=== PATIENT | male | born 1980 | race African-American/Black ===

== ENCOUNTER 2020-01-15 12:03 | Inpatient (IN) | payer OTHER ==
[~2020-01-15] VITALS: Ht 180.3 cm; Wt 83.7 kg
[2020-01-15] MEDS ORDERED: NITROGLYCERIN 2% (1 GM=INCH) PACKET TP ONE (12:45)
[2020-01-15] MEDS ORDERED: NITROGLYCERIN 0.4 MG SUBLINGUAL TABLET #25 SL ONE (12:45)
[2020-01-15] MEDS ORDERED: ASPIRIN 81 MG CHEWABLE TABLET PO ONE (12:45)
[2020-01-15 12:54] LABS: BASOPHILS % (AUTO) 0.9 % (0.0-2.0); EOSINOPHILS % (AUTO) 1.6 % (1.0-6.0); HEMATOCRIT 36.6 % (41-53); HEMOGLOBIN 11.8 g/dL (13.5-17.5); LYMPHOCYTES # (AUTO) 1.6 K/uL (1.0-4.8); LYMPHOCYTES % (AUTO) 16.8 % (22.0-44.0); MEAN CORPUSCULAR HEMOGLOBIN 27.8 pg (26.0-34.0); MEAN CORPUSCULAR HGB CONC 32.3 G/dL (31.0-37.0); MEAN CORPUSCULAR VOLUME 86 fL (80-100); MONOCYTES # (AUTO) 0.5 K/uL (0.1-1.0); MONOCYTES % (AUTO) 5.6 % (2.0-9.0); NEUTROPHILS # (AUTO) 7.1 K/uL (1.8-7.7); NEUTROPHILS % (AUTO) 75.1 % (40.0-70.0); PLATELET COUNT (AUTO) 268 K/uL (150-450); RED BLOOD CELL COUNT(AUTO) 4.25 MIL/uL (4.50-5.90); RED CELL DISTRIBUTION WIDTH 16.3 % (11.5-14.5)
[2020-01-15 13:07] LABS: ANION GAP 11 mmol/L (8-16); CALCIUM, TOTAL 7.3 mg/dL (8.8-10.5); CARBON DIOXIDE 24 mmol/L (22-29); CHLORIDE 102 mmol/L (98-107); CREATININE 9.63 mg/dL (0.60-1.30); GLOMERULAR FILTR. RATE CALC 7 mL/min (>60); GLUCOSE,RANDOM 146 mg/dL (70-110); POTASSIUM 5.2 mmol/L (3.5-5.1); SODIUM SERUM 137 mmol/L (136-145); UREA NITROGEN, BLOOD 92 mg/dL (7-18)
[2020-01-15 13:15] LABS: ALANINE AMINOTRANSFERASE 54 U/L (12-78); ALBUMIN 2.3 g/dL (3.4-5.0); ALKALINE PHOSPHATASE 73 U/L (46-116); ASPARTATE AMINOTRANSFERASE 32 U/L (15-37); BILIRUBIN,TOTAL 0.5 mg/dL (0.1-1.0); TOTAL PROTEIN, SERUM 5.3 g/dL (6.4-8.2)
[2020-01-15 13:19] LABS: B-TYPE NATRIURETIC PEPTIDE > 5000 pg/mL (0-100)
[2020-01-15] MEDS ORDERED: NiCARDipine HCL 25 MG in DEXTROSE 5%-WATER 240 ML IV PRN (13:31)
[2020-01-15] MEDS ORDERED: BUMETANIDE 0.25 MG/ML 4 ML VIAL IVP ONE (13:45)
[2020-01-15 14:45] LABS: AMPHET/METH SCREEN,URINE NEGATIVE (NEGATIVE); BARBITURATE SCREEN, URINE NEGATIVE (NEGATIVE); BENZODIAZEPINES SCREEN,URINE NEGATIVE (NEGATIVE); CANNABINOID SCREEN,URINE NEGATIVE (NEGATIVE); COCAINE SCREEN,URINE NEGATIVE (NEGATIVE); METHADONE SCREEN, URINE NEGATIVE (NEGATIVE); OPIATE SCREEN,URINE NEGATIVE (NEGATIVE)
[2020-01-15 14:55] LABS: PHENCYCLIDINE SCREEN,URINE NEGATIVE (NEGATIVE)
[2020-01-15] MEDS ORDERED: HYDROCODONE/ACETAMINOPHEN 5-325 MG TABLET PO PRN (15:30)
[2020-01-15] MEDS ORDERED: ZOLPIDEM TARTRATE 5 MG TABLET PO PRN (15:30)
[2020-01-15] MEDS ORDERED: ACETAMINOPHEN 325 MG TABLET PO PRN (15:30)
[2020-01-15] MEDS ORDERED: ALPRAZolam 0.5 MG TABLET PO ONE ×2 (15:30→17:30)
[2020-01-15] MEDS ORDERED: ONDANSETRON HCL 4 MG/2 ML VIAL IVP PRN (15:30)
[2020-01-15] MEDS ORDERED: MORPHINE SULFATE 2 MG/ML SYRINGE IVP PRN (15:30)
[2020-01-15] MEDS ORDERED: BISACODYL 10 MG RECTAL RECTAL SUPPOSITORY PR PRN (15:30)
[2020-01-15] MEDS ORDERED: MAGNESIUM HYDROXIDE SUSPENSION 30 ML UDCUP PO PRN (15:30)
[2020-01-15] MEDS ORDERED: CloNIDine HCL 0.1 MG TABLET PO ONE (16:00)
[2020-01-15] MEDS: HEPARIN SODIUM,PORCINE 5,000 UNITS/ML VIAL SQ SCH (17:38)
[2020-01-15 17:40] LABS: CHOL/HDL RATIO 2.6 (4.2-7.3)
[2020-01-15 20:00] VITALS: BP 157/74
[2020-01-15] MEDS ORDERED: FUROSEMIDE 20 MG/2 ML VIAL IVP SCH (21:00)
[2020-01-15] MEDS ORDERED: BUMETANIDE 1 MG TABLET PO ONE (21:00)
[2020-01-15] MEDS: CARVEDILOL 6.25 MG TABLET PO SCH (21:44)
[2020-01-15] MEDS: DOCUSATE SODIUM 100 MG CAPSULE PO SCH (21:44)
[2020-01-15] MEDS ORDERED: INFLUENZA VIRUS VACCINE QVS 2019-20 (3YR+)/PF 60 MCG/0.5 ML SYRINGE IM ONE (23:45)
[2020-01-16] VITALS (9 sets, daily range): BP systolic 155–180; BP diastolic 88–117
[2020-01-16] MEDS: HEPARIN SODIUM,PORCINE 5,000 UNITS/ML VIAL SQ SCH ×4 (00:32→23:22)
[2020-01-16] MEDS: CARVEDILOL 6.25 MG TABLET PO SCH ×2 (08:53→20:39)
[2020-01-16] MEDS: DOCUSATE SODIUM 100 MG CAPSULE PO SCH ×2 (08:53→20:39)
[2020-01-16] MEDS: PANTOPRAZOLE SODIUM 40 MG DR TABLET PO SCH (08:54)
[2020-01-16 09:24] LABS: CALCIUM, TOTAL 7.3 mg/dL (8.8-10.5); CREATININE 9.63 mg/dL (0.60-1.30); PHOSPHORUS 7.4 mg/dL (2.5-4.9); POTASSIUM 4.4 mmol/L (3.5-5.1)
[2020-01-16] MEDS: CALCIUM ACETATE 667 MG CAPSULE PO SCH ×2 (11:05→17:15)
[2020-01-16] MEDS: CloNIDine HCL 0.1 MG TABLET PO SCH ×2 (11:05→20:39)
[2020-01-16] MEDS: BUMETANIDE 0.25 MG/ML 4 ML VIAL IVP SCH ×2 (11:06→20:39)
[2020-01-16] MEDS ORDERED: AmLODIPine BESYLATE 5 MG TABLET PO SCH (12:30)
[2020-01-16 12:48] LABS: APPEARANCE,URINE CLEAR (CLEAR); BILIRUBIN,URINE NEGATIVE (NEGATIVE); GLUCOSE, URINE (UA) 100 mg/dL (NEGATIVE); KETONES,URINE NEGATIVE (NEGATIVE); LEUKOCYTE ESTERASE ,URINE NEGATIVE (NEGATIVE); NITRATE,URINE NEGATIVE (NEGATIVE); OCCULT BLOOD,URINE MODERATE (NEGATIVE); PROTEIN,URINE SEE CONFIRM (NEGATIVE); UROBILINOGEN,URINE 0.2 mg/dL (<=1.0)
[2020-01-16 12:51] LABS: CREATININE,URINE RANDOM 25.4 mg/dL (30.0-125.0)
[2020-01-16 13:39] LABS: SULFOSALICYLIC ACID,URINE 1+ (Negative)
[2020-01-16 13:41] LABS: BACTERIA,URINE None Seen /HPF (None Seen); RBC,URINE 0-2 /HPF (0-2); SQUAMOUS EPITHELIAL CELL,UR Rare /LPF (None Seen); WBC,URINE 0-2 /HPF (0-5)
[2020-01-16] MEDS: HydrALAZINE HCL 25 MG TABLET PO SCH ×2 (15:17→20:39)
[2020-01-17] VITALS (7 sets, daily range): BP systolic 169–180; BP diastolic 100–117
[2020-01-17 04:32] LABS: AMPHET/METH SCREEN,URINE NEGATIVE (NEGATIVE); BARBITURATE SCREEN, URINE NEGATIVE (NEGATIVE); BENZODIAZEPINES SCREEN,URINE NEGATIVE (NEGATIVE); CANNABINOID SCREEN,URINE NEGATIVE (NEGATIVE); COCAINE SCREEN,URINE NEGATIVE (NEGATIVE); METHADONE SCREEN, URINE NEGATIVE (NEGATIVE); OPIATE SCREEN,URINE NEGATIVE (NEGATIVE)
[2020-01-17 04:35] LABS: PHENCYCLIDINE SCREEN,URINE NEGATIVE (NEGATIVE)
[2020-01-17 07:43] LABS: CALCIUM, TOTAL 7.7 mg/dL (8.8-10.5); CREATININE 9.69 mg/dL (0.60-1.30); MAGNESIUM 2.2 mg/dL (1.80-2.40); POTASSIUM 4.7 mmol/L (3.5-5.1)
[2020-01-17] MEDS: HEPARIN SODIUM,PORCINE 5,000 UNITS/ML VIAL SQ SCH ×3 (08:00→23:56)
[2020-01-17] MEDS: BUMETANIDE 0.25 MG/ML 4 ML VIAL IVP SCH ×2 (08:14→19:55)
[2020-01-17] MEDS: CloNIDine HCL 0.1 MG TABLET PO SCH ×2 (08:15→19:54)
[2020-01-17] MEDS: CALCIUM ACETATE 667 MG CAPSULE PO SCH ×3 (08:16→18:20)
[2020-01-17] MEDS: PANTOPRAZOLE SODIUM 40 MG DR TABLET PO SCH (08:24)
[2020-01-17] MEDS: DOCUSATE SODIUM 100 MG CAPSULE PO SCH ×2 (08:24→19:55)
[2020-01-17] MEDS ORDERED: ISOSORBIDE MONONITRATE 30 MG ER TABLET PO ONE (08:30)
[2020-01-17] MEDS ORDERED: HydrALAZINE HCL 50 MG TABLET PO SCH (09:00)
[2020-01-17] MEDS ORDERED: CARVEDILOL 12.5 MG TABLET PO SCH (09:00)
[2020-01-17] MEDS ORDERED: HydrALAZINE HCL 25 MG TABLET PO ONE (10:45)
[2020-01-17] MEDS ORDERED: CARVEDILOL 6.25 MG TABLET PO ONE (10:45)
[2020-01-17] MEDS: HydrALAZINE HCL 50 MG TABLET PO SCH ×2 (15:34→19:54)
[2020-01-17] MEDS: CARVEDILOL 12.5 MG TABLET PO SCH (19:55)
[2020-01-18] VITALS (13 sets, daily range): BP systolic 131–190; BP diastolic 66–135
[2020-01-18 07:18] LABS: % IRON SATURATION 20.2 % (30-44)
[2020-01-18 07:21] LABS: PROTHROMBIN TIME 10.6 SEC (9.4-11.6)
[2020-01-18 07:32] LABS: CALCIUM, TOTAL 8.3 mg/dL (8.8-10.5); CREATININE 9.64 mg/dL (0.60-1.30); POTASSIUM 4.8 mmol/L (3.5-5.1)
[2020-01-18] MEDS: HEPARIN SODIUM,PORCINE 5,000 UNITS/ML VIAL SQ SCH ×2 (08:00→15:16)
[2020-01-18] MEDS: CALCIUM ACETATE 667 MG CAPSULE PO SCH ×3 (08:00→17:49)
[2020-01-18] MEDS: CARVEDILOL 12.5 MG TABLET PO SCH ×2 (08:11→20:01)
[2020-01-18] MEDS: CloNIDine HCL 0.1 MG TABLET PO SCH ×2 (08:11→20:01)
[2020-01-18] MEDS: ISOSORBIDE MONONITRATE 30 MG ER TABLET PO SCH (08:11)
[2020-01-18] MEDS: HydrALAZINE HCL 50 MG TABLET PO SCH ×3 (08:11→21:00)
[2020-01-18] MEDS: BUMETANIDE 0.25 MG/ML 4 ML VIAL IVP SCH ×2 (08:12→20:03)
[2020-01-18] MEDS: DOCUSATE SODIUM 100 MG CAPSULE PO SCH ×2 (08:13→20:03)
[2020-01-18] MEDS: PANTOPRAZOLE SODIUM 40 MG DR TABLET PO SCH (08:13)
[2020-01-18] MEDS ORDERED: GELATIN SPONGE,ABSORBABLE 12-7 MM TP ONE (09:31)
[2020-01-18] MEDS ORDERED: FentaNYL CITRATE-PF 100 MCG/2 ML VIAL ONE (09:54)
[2020-01-18] MEDS ORDERED: MIDAZOLAM HCL 2 MG/2 ML VIAL ONE (09:55)
[2020-01-18] MEDS ORDERED: NALOXONE HCL 0.4 MG/ML VIAL ONE (09:55)
[2020-01-18] MEDS ORDERED: FLUMAZENIL 0.1 MG/ML 5 ML VIAL IVP ONE (09:55)
[2020-01-18] MEDS ORDERED: SODIUM CHLORIDE 0.9% 250 ML IV ONE (10:45)
[2020-01-18] MEDS ORDERED: FentaNYL CITRATE-PF 100 MCG/2 ML VIAL IVP ONE (11:10)
[2020-01-18] MEDS ORDERED: MIDAZOLAM HCL 2 MG/2 ML VIAL IVP ONE (11:12)
[2020-01-18 15:02] LABS: ALPHA-1 (IFE & PEP) 0.3 g/dL (0.0-0.4); BETA (IFE & ELP) 0.8 g/dL (0.7-1.3); GAMMA GLOBULINS (IFE & ELP) 0.5 g/dL (0.4-1.8); IGM (IMMUNOFIXATION) 17 mg/dL (20-172)
[2020-01-18] MEDS: AmLODIPine BESYLATE 10 MG TABLET PO SCH (15:14)
[2020-01-18] MEDS: IRON SUCROSE COMPLEX 100 MG in SODIUM CHLORIDE 0.9% 100 ML IV SCH (15:15)
[2020-01-19 00:37] VITALS: BP 122/70
[2020-01-19 04:21] VITALS: BP 145/88
[2020-01-19 07:26] VITALS: BP 154/94
[2020-01-19 07:44] LABS: HIV 1-2 SCREEN 4TH GEN W/RFLX Non Reactive (Non Reactive)
[2020-01-19] MEDS: CALCIUM ACETATE 667 MG CAPSULE PO SCH (08:55)
[2020-01-19] MEDS: HEPARIN SODIUM,PORCINE 5,000 UNITS/ML VIAL SQ SCH ×2 (08:56)
[2020-01-19] MEDS: BUMETANIDE 0.25 MG/ML 4 ML VIAL IVP SCH (08:56)
[2020-01-19] MEDS: HydrALAZINE HCL 50 MG TABLET PO SCH (08:57)
[2020-01-19] MEDS: DOCUSATE SODIUM 100 MG CAPSULE PO SCH (08:59)
[2020-01-19] MEDS: CloNIDine HCL 0.1 MG TABLET PO SCH (08:59)
[2020-01-19] MEDS: CARVEDILOL 12.5 MG TABLET PO SCH (09:00)
[2020-01-19] MEDS: ISOSORBIDE MONONITRATE 30 MG ER TABLET PO SCH (09:01)
[2020-01-19] MEDS: AmLODIPine BESYLATE 10 MG TABLET PO SCH (09:02)
[2020-01-19] MEDS: PANTOPRAZOLE SODIUM 40 MG DR TABLET PO SCH (09:04)
[2020-01-19] MEDS: IRON SUCROSE COMPLEX 100 MG in SODIUM CHLORIDE 0.9% 100 ML IV SCH (11:00)
[2020-01-19] MEDS ORDERED: ERGOCALCIFEROL (VIT D2) 50,000 UNITS CAPSULE PO ONE (11:15)
[2020-01-19] MEDS ORDERED: ISOS30TA6 PO (12:09)
[2020-01-19] MEDS ORDERED: AMLO5TAB66 PO (12:10)
[2020-01-19] MEDS ORDERED: CLON0.1T83 PO (12:12)
[2020-01-19] MEDS ORDERED: BUME1TAB34 PO (12:13)
[2020-01-19] MEDS ORDERED: DOCU100C33 PO (12:13)
[2020-01-19] MEDS ORDERED: CARV25 PO (12:14)
[2020-01-19] MEDS ORDERED: HYDR-2924 PO (12:14)
[2020-01-19] MEDS ORDERED: BUMETANIDE 1 MG TABLET PO SCH (21:00)
[2020-01-20 10:27] LABS: ALPHA-1 URINE 8.7 %; ALPHA-2 URINE 14.5 %
== END 2020-01-19 13:30 | disposition home or self-care (01) | DRG 682 ==
LOC: EMS 12:05 → ICU 15:02 → 5N 01-16 08:06
PROVIDERS: ADMIT Internal Medicine; ATTEND Internal Medicine
PROC: 0TB03ZX Excision of Right Kidney, Percutaneous Approach, Diagnostic (ICD-10-PCS; principal; 2020-01-18)
DX: N17.9 Acute kidney failure, unspecified (principal); I50.23 Acute on chronic systolic (congestive) heart failure; I13.2 Hypertensive heart and chronic kidney disease with heart failure and with stage 5 chronic kidney disease, or end stage renal disease; I16.1 Hypertensive emergency; I42.0 Dilated cardiomyopathy; N18.6 End stage renal disease; N04.9 Nephrotic syndrome with unspecified morphologic changes; E87.5 Hyperkalemia; I16.0 Hypertensive urgency; D63.8 Anemia in other chronic diseases classified elsewhere; F10.10 Alcohol abuse, uncomplicated; Y90.9 Presence of alcohol in blood, level not specified; R60.0 Localized edema; F17.210 Nicotine dependence, cigarettes, uncomplicated; G43.909 Migraine, unspecified, not intractable, without status migrainosus; I95.9 Hypotension, unspecified; F12.90 Cannabis use, unspecified, uncomplicated
CPT/HCPCS: 50200; 76770; 80307; 82570; 82595; 82728; 82784; 83036; 83540; 83550; 83735; 83970; 84100; 84155; 84156; 84165; 84166; 84300; 84540; 86038; 86160; 86334; 86335; 86704; 86803; 87081; 87340; 87389; 88300; 93005; 93306; 99291; G0378; J1644; J1756; J2250; J2310; J2405; J3010; J3490; J7050; J7060